=== PATIENT | female | born 1985 | race African-American/Black ===

== ENCOUNTER 2024-10-19 18:23 | Emergency (ER) | payer SELFPAY ==
[2024-10-19 18:32] VITALS: TEMP 97.7; BMI 32.4
[2024-10-19 19:20] VITALS: RESP 20
[2024-10-19 19:54] LABS: ABSOLUTE IMMATURE GRANULOCYTES 0.01 x10^3/uL (0.0-0.031); BASOPHILS # 0.05 x10^3/uL (0.01-0.08); EOSINOPHIL % 0.6 % (0.7-5.8); EOSINOPHILS # 0.04 x10^3/uL (0.04-0.36); HEMATOCRIT 40.5 % (34.1-44.9); HEMOGLOBIN 13.4 g/dL (11.2-15.7); MCHC 33.1 g/dl (32.2-35.5); MEAN PLT VOLUME 9.3 fl (9.4-12.3); MONOCYTE # 0.73 x10^3/uL (0.24-0.86); MONOCYTE % 11.4 % (4.7-12.5); PLATELET COUNT 394 x10^3/uL (182-369); RDW 11.2 % (12.1-16.8)
[2024-10-19 20:02] LABS: INR 1.09 (0.83-1.09); PROTHROMBIN TIME (PATIENT) 11.9 SEC (9.7-13.0)
[2024-10-19 20:05] LABS: ACTIVATED PTT 29.5 SECONDS (25.2-36.5)
[2024-10-19 20:17] LABS: POTASSIUM 3.9 mmol/L (3.5-5.1)
[2024-10-19] MEDS ORDERED: FAMOTIDINE 20 MG TABLET ONE (20:18)
[2024-10-19 20:19] LABS: CALCIUM 9.9 mg/dL (8.5-10.1)
[2024-10-19 20:20] LABS: ALBUMIN 3.9 g/dl (3.4-5.0); BLOOD UREA NITROGEN 12.2 mg/dL (7-18); MAGNESIUM 2.2 mg/dL (1.8-2.4)
[2024-10-19] MEDS: ACETAMINOPHEN 500 MG TABLET (FP) PO ONE (20:20)
[2024-10-19] MEDS: FAMOTIDINE 20 MG TABLET PO ONE (20:20)
[2024-10-19 20:24] LABS: TOT PROT 7.9 g/dl (6.4-8.2)
[2024-10-19] MEDS: SODIUM CHLORIDE 0.9% 500 ML INFUS.BAG IV ONE (20:57)
[2024-10-19 21:20] LABS: HIV INTERPRETATION NEGATIVE (NEGATIVE)
[2024-10-19 21:21] LABS: HCV DIAGNOSTIC IN-HOUSE W/RFLX NON-REACTIVE (NONREACTIVE)
== END 2024-10-19 22:47 | disposition home or self-care (01) ==
LOC: JER 18:23
DX: R07.2 Precordial pain (principal); R42 Dizziness and giddiness
CPT/HCPCS: 0241U-QW; 36415; 71046-TC-FY; 80053; 83735; 84484; 84703; 85025; 85610; 85730; 86803; 87389; 93005; 93010; 99285-25